=== PATIENT | male | born 1970 ===

== ENCOUNTER 2020-08-07 21:20 | Emergency (ER) | payer SELFPAY ==
[~2020-08-07] VITALS: Ht 188 cm; Wt 95.5 kg
[2020-08-07 21:38] VITALS: BP 159/91; Ht 188 cm; Wt 95.5 kg
[2020-08-07] MEDS ORDERED: LOTRIMIN ULTRA12 GM TOPICAL (22:30)
== END 2020-08-07 23:14 | disposition home or self-care (01) ==
LOC: D.ER 21:20
DX: N47.2 Paraphimosis (principal)